=== PATIENT | female | born 1955 | race Caucasian/White ===

== ENCOUNTER 2017-01-25 00:27 | Emergency (ER) | payer OTHER, MEDICARE ==
[~2017-01-25 00:27] MED LIST: ABIL20TA5 PO; ALBUAER3 INH; BACL10TA PO; CYCL10TA PO; FLUO20CA4 PO; HYDR-2376 PO; LAMO25 PO; METHY10 PO; TRAZ300T2 PO; ZITHTAB PO; ZOFR4TAB3 SL; [UNRECOGNIZED DRUG - CODE] PO
[2017-01-25 00:31] VITALS: BP 124/66; PULSE 75; RESP 16; TEMP 97.7; O2SAT 96
[2017-01-25] MEDS ORDERED: PROM25TA10 PO (00:54)
[2017-01-25] MEDS ORDERED: OMEP20TA93 PO (00:54)
[2017-01-25] MEDS ORDERED: FLUO1TAB3 PO (00:54)
[2017-01-25] MEDS ORDERED: ASPI81CH6 CHEW (00:54)
[2017-01-25] MEDS ORDERED: TRAZ100T10 PO (00:54)
[2017-01-25] MEDS ORDERED: BENZ100 PO (00:54)
[2017-01-25] MEDS ORDERED: TRIA37.53 PO (00:54)
[2017-01-25] MEDS ORDERED: MELO15TA20 PO (00:54)
--- NOTE | 2017-01-25 01:02 | PD ---
HPI Chief Complaint: Edema Time Seen by Provider: 00:55 Travel History International Travel<30 days: No Contact w/Intl Traveler<30days: No Traveled to known affect area: No History of Present Illness HPI The patient is a 61 year old female who presents to the [facility] emergency department with a history of left knee pain that began approximately 2 months ago. Her knee has both locking and giving out. She reports that the pain is worse with walking, bending, or going up stairs. She reports that she had a partial knee replacement done in 2010. She reports that she has swelling of the left knee. She reports that the pain is gotten worse with time is and is now down into the left calf and thigh. She denies having any redness associated with this. She denies having any fevers or chills. She saw Dr. Copeland regarding this 2 weeks ago and xrays were ordered. He also ordered blood work however this has not been done yet. She had a bone scan and CT scan done in Dr. Copeland's office, however she does not know the results. She reports that Dr. Barrios is her PCP. She reports that she is on meloxicam. She also reports that she took hydrocodone for the pain without relief. She reports that she has hydrocodone for her migraine headaches. On review of systems otherwise, the patient denies having any cough, congestion, neck pain, chest pain, shortness of breath, abdominal pain, vomiting, diarrhea, urinary symptoms, or neurologic symptoms. [facility] Past Medical History Narrative Medical The patient's past medical history is significant for hypertension, depression, peptic ulcer disease, gastroparesis, anxiety, migraine headaches, history of hyponatremia. Hx Anticoagulant Therapy: Yes Arthritis: Yes Asthma: Yes ( A CHILD) Blood Disorders: No Anxiety: Yes Depression: Yes Heart Rhythm Problems: No Cancer: No Cardiac Catheterization: No Cardiovascular Problems: Yes (angioplasty x 7 years ago) High Cholesterol: Yes Chemotherapy: No Chest Pain: Yes (CHEST WALL PAIN ) Congestive Heart Failure: No Diabetes: No Diminished Hearing: No Endocrine: No Gastrointestinal Disorders: Yes (GASTROPHARESIS) GERD: No Glaucoma: No Genitourinary: No Headaches: Yes Hepatitis: No Hiatal Hernia: No Hypertension: Yes Immune Disorder: No Implanted Vascular Access Dvce: Yes Medical other: Yes (GERD,ULCER) Musculoskeletal: Yes Neurologic: Yes Psychiatric: Yes Reproductive: No Respiratory: Yes Immunizations Current: Yes Migraines: Yes Radiation Therapy: No Seizures: Yes (METABOLIC X 2 "POTASSIUM AND MAGNESIUM WAS LOW" LAST SEIZURE 1998) Sleep Apnea: Yes Thyroid Disease: No Ulcer: Yes PNEUMOCCOCAL Vaccine (Year): 2 ?: Not Menopausal: Yes : 2 Para: 0 Miscarriage: 0 Tubal Ligation: Yes Past Surgical History Narrative Surgical The patient's past surgical history is significant for bilateral tubal ligation , cholecystectomy, , right shoulder surgery, left partial knee replacement. Abdominal Surgery: Yes (CHOLECYSTECTOMY) AICD: No Appendectomy: Yes Arteriovenous Shunt: No Cardiac Surgery: No Section: Yes Cholecystectomy: Yes Coronary Artery Bypass Graft: No Ear Surgery: No Endocrine Surgery: No Eye Surgery: No Genitourinary Surgery: No Gynecologic Surgery: Yes (C SECTION,TUBAL LIG., HYSTERECTOMY) Hysterectomy: Yes Insulin Pump: No Joint Replacement: Yes (PARTIAL LEFT KNEE REPLACEMENT/ RIGHT SHOULDER REDUCTION ) Neurologic Surgery: No Oral Surgery: No Pacemaker: No Thoracic Surgery: No Tonsillectomy: Yes Other Surgery: No Family History Family Hypercholesterolemia: Yes Social History Alcohol Use: No Tobacco Use: No Substance Use: No Allergies-Medications (Allergen,Severity, Reaction): Uncoded Allergies: ANTIHISTAMINES (Adverse Reaction, Severe, HYPERACTIVE, 06/26/11) Reported Meds & Prescriptions Reported Meds & Active Scripts Active Reported Aspirin Low Dose (Aspirin) 81 Mg Chew 81 Mg CHEW DAILY Tessalon Perles (Benzonatate) 100 Mg Cap 200 Mg PO TID PRN Omeprazole 20 Mg Tab 20 Mg PO DAILY Phenergan (Promethazine HCl) 25 Mg Tablet 25 Mg PO ONCE Triamterene-Hydrochlorothiazide 37.5-25 Mg Cap 1 Cap PO DAILY Meloxicam 15 Mg Tab 15 Mg PO DAILY Trazodone (Trazodone HCl) 100 Mg Tablet 200 Mg PO HS Fluoxetine (Fluoxetine HCl) 20 Mg Tab 20 Mg PO DAILY Lamictal (Lamotrigine) 25 Mg Tab 25 Mg PO QHS Hydrocodone-Acetaminophen 7.5-300 Mg Tab 1 Tab PO Q6H PRN Baclofen 10 Mg Tab 10 Mg PO TID Abilify (Aripiprazole) 20 Mg Tab 20 Mg PO DAILY Review of Systems Except as stated in HPI: all other systems reviewed are Neg General / Constitutional: No: Fever Eyes: No: Visual changes HENT: No: Headaches, Rhinorrhea, Congestion, Neck Stiffness, Neck Pain Cardiovascular: No: Chest Pain or Discomfort Respiratory: No: Cough, Shortness of Breath Gastrointestinal: No: Nausea, Vomiting, Diarrhea, Abdominal Pain Genitourinary: No: Dysuria Musculoskeletal: Positive: Myalgias, Arthralgias, Limited ROM, Edema, Pain Skin: No Rash Neurologic: No: Weakness, Focal Abnormalities, Change in Mentation, Slurred Speech, Sensory Disturbance Psychiatric: No: Depression Endocrine: No: Polydipsia Hematologic/Lymphatic: No: Easy Bruising Physical Exam Narrative General: The patient is a well-developed well-nourished female in no acute distress. Head and Neck exam: Head is normocephalic atraumatic. Eyes: EOMI, pupils are equal round and reactive to light. Nose: Midline septum with pink mucous membranes Mouth: Dentition unremarkable. Moist mucus membranes. Posterior oropharynx is not erythematous. No tonsillar hypertrophy. Uvula midline. Airway patent. Neck: No palpable lymphadenopathy. No nuchal rigidity. No thyromegaly. Cardiovascular: Regular rate and rhythm with a 1/6 systolic murmur. The patient reports that she does have a history of heart murmur. No pulse deficit to the extremities on simultaneous auscultation and palpation of her radial artery. Lungs: Clear to auscultation bilaterally. No wheezes, rhonchi, or rales. Abdomen: Soft, without tenderness to palpation in all 4 quadrants of the abdomen. No guarding, rebound, or rigidity. Normal bowel sounds are audible. No tenderness on palpation of McBurney's point. Extremities: No clubbing, cyanosis, or edema. 2+ pulses in all 4 extremities. The patient has no significant edema noted on examination of the left knee, however she does have tenderness on palpation of the left calf and the left distal thigh. There is no erythema. There is no fluctuance or pointing. The patient on examination of the left knee reports having anterior knee pain as well as medial joint line pain. There is no ligament laxity. The patient does have full range of motion. There is no ballotable patella. Back: No costovertebral angle tenderness to palpation. Neurologic Exam: Cranial nerves 2-12 were intact on exam. Strength is 5/5 in all 4 extremities. No sensory deficits noted. Skin Exam: No rash noted. Intact skin that is warm and dry. Data Data Last Documented VS Vital Signs Date Time Temp Pulse Resp B/P (MAP) Pulse Ox O2 Delivery O2 Flow Rate FiO2 01/25/17 03:16 17 (79) 96 Room Air 01/25/17 03:15 71 01/25/17 00:31 97.7 Orders Orders Us Leg Venous Doppler (01/25/17 01:00) Complete Blood Count With Diff (01/25/17 01:12) Comprehensive Metabolic Panel (01/25/17 01:12) Prothrombin Time / Inr (Pt) (01/25/17 01:12) Act Partial Throm Time (Ptt) (01/25/17 01:12) C-Reactive Protein (Crp) (01/25/17 01:12) Westergren Sedimentation Rate (01/25/17 01:12) Phosphorus (Po4) (01/25/17 01:12) Iv Access Insert/Monitor (01/25/17 01:12) Ecg Monitoring (01/25/17 01:12) Oximetry (01/25/17 01:12) Ketorolac Inj (Toradol Inj) (01/25/17 01:15) Hydromorphone Pf Inj (Dilaudid Pf Inj) (01/25/17 03:15) Ondansetron Inj (Zofran Inj) (01/25/17 03:15) Splint Or Brace Apply/Monitor (01/25/17 03:16) Ed Discharge Order (01/25/17 03:17) Labs Laboratory Tests Test 01/25/17 01:55 White Blood Count 7.3 TH/MM3 Red Blood Count 4.23 MIL/MM3 Hemoglobin 13.1 GM/DL Hematocrit 39.1 % Mean Corpuscular Volume 92.4 FL Mean Corpuscular Hemoglobin 31.0 PG Mean Corpuscular Hemoglobin Concent 33.5 % Red Cell Distribution Width 12.4 % Platelet Count 212 TH/MM3 Mean Platelet Volume 6.8 FL Neutrophils (%) (Auto) 39.8 % Lymphocytes (%) (Auto) 44.7 % Monocytes (%) (Auto) 10.9 % Eosinophils (%) (Auto) 4.0 % Basophils (%) (Auto) 0.6 % Neutrophils # (Auto) 2.9 TH/MM3 Lymphocytes # (Auto) 3.3 TH/MM3 Monocytes # (Auto) 0.8 TH/MM3 Eosinophils # (Auto) 0.3 TH/MM3 Basophils # (Auto) 0.0 TH/MM3 CBC Comment DIFF FINAL Differential Comment Erythrocyte Sedimentation Rate 6 mm/hr Prothrombin Time 10.5 SEC Prothromb Time International Ratio 1.0 RATIO Activated Partial Thromboplast Time 23.9 SEC Blood Urea Nitrogen 12 MG/DL Creatinine 0.93 MG/DL Random Glucose 119 MG/DL Total Protein 7.4 GM/DL Albumin 3.9 GM/DL Calcium Level 9.0 MG/DL Phosphorus Level 3.9 MG/DL Alkaline Phosphatase 80 U/L Aspartate Amino Transf (AST/SGOT) 19 U/L Alanine Aminotransferase (ALT/SGPT) 16 U/L Total Bilirubin 0.7 MG/DL Sodium Level 125 MEQ/L Potassium Level 3.7 MEQ/L Chloride Level 91 MEQ/L Carbon Dioxide Level 25.6 MEQ/L Anion Gap 8 MEQ/L Estimat Glomerular Filtration Rate 61 ML/MIN C-Reactive Protein LESS THAN 0.29 MG/DL MDM Medical Decision Making Medical Screen Exam Complete: Yes Emergency Medical Condition: Yes Medical Record Reviewed: Yes Interpretation(s) Last Impressions Lower Extremity Ultrasound 01/25/17 0100 Signed Impressions: Service Date/Time: Wednesday, January 25, 2017 01:32 - CONCLUSION: No venous thrombosis of the left lower extremity. Moderate-sized popliteal cyst. Cosme Manley MD Differential Diagnosis Septic joint, versus recurrence of arthritis, versus DVT, versus Gonzalez cyst Narrative Course During the course of the patients emergency department visit, the patients history, examination, and differential diagnosis were reviewed with the patient. The patient was placed on a cardiac tech with oximetry and frequent blood pressure monitoring. The patient had IV access obtained and blood work sent for analysis. An ultrasound of the left lower extremity was ordered. The patient was initially provided Toradol 15 mg IV for pain. With continued pain the patient was given hydromorphone 0.5 mg IV. The patients laboratory studies were reviewed and remarkable for a white count of 7.3, hemoglobin 13.1, platelets 212 with 44.7 lymphocytes, monocytes 10.9, sedimentation rate is 6, CRP is less than 0.29, CMP is remarkable for sodium of 125, chloride 91, glucose 119. A review of the electronic medical record reveals that the patient has had hyponatremia in the past. The patient and the patient's reports that they were not aware of this. The patient's sodium has been as low as 117. We discussed that this could be medication related. She is on 2 medications that could be contributed to the hyponatremia , fluoxetine as well as hydrochlorothiazide. I recommended that she discontinue the hydrochlorothiazide and discuss the hyponatremia with her primary care physician in the morning. Radiology studies were reviewed and remarkable for an ultrasound of the left leg that shows no venous thrombosis, moderate-sized popliteal cyst. Due to the fact that the patient reports that her leg at times is giving out, the patient was given left knee immobilizer. The patient was instructed that she can take this off when she elevates her leg. The patient was instructed to continue on her current pain management regimen and discuss her ER visit with her orthopedic physician in the morning. The patient is resting comfortably and feels better, is alert and in no distress. The patients results and examination findings were discussed with the patient. The repeat examination is unremarkable and benign. The history, exam, diagnostic testing, and current condition do not suggest any significant pathology to warrant further testing, continued ED treatment, admission, or surgical evaluation at this point. The vital signs have been stable. The patient does not have uncontrollable pain, intractable vomiting, or other significant symptoms. The patient's condition is stable and appropriate for discharge. The patient will pursue further outpatient evaluation with a primary care physician or other designated or consulting physician as indicated in the discharge instructions. The patient expressed understanding and was agreeable with this plan. Diagnosis Primary Impression: Left knee pain Qualified Codes: M25.562 - Pain in left knee; G89.29 - Other chronic pain Additional Impressions: Popliteal cyst Qualified Codes: M71.22 - Synovial cyst of popliteal space [Gonzalez], left knee Hyponatremia Referrals: Masoud Copeland MD 2 days Patient Instructions: General Instructions, Hyponatremia (ED), Knee Pain (ED) Med/Other Pt SpecificInfo: Med Stopped (I recommended stopping hydrochlorothiazide) Disposition: 01 DISCHARGE HOME Condition: Stable Charlotte Sierra MD Jan 25, 2017 01:02
[2017-01-25] MEDS ORDERED: KETOROLAC TROMETHAMINE 30 MG/ML (IVP) VIAL IV PUSH ONE (01:15)
--- NOTE | 2017-01-25 01:57 | RADRPT ---
EXAM DATE/TIME: 01/25/2017 01:32 [facility] COMPARISON: No previous studies available for comparison. INDICATIONS : Left leg pain. MEDICAL HISTORY : Hypercholesterolemia. Hypertension. Left leg pain. SURGICAL HISTORY : Appendectomy. Hysterectomy. Tubal ligation. Cholecystectomy. Left knee replacement. ENCOUNTER: Initial ACUITY: 1 month PAIN SCORE: 5/10 LOCATION: Left leg. TECHNIQUE: Venous ultrasound of the leg was performed from the inguinal ligament to the proximal calf. Real-janeth e, color Doppler and spectral tracing, compression and augmentation techniques were used. FINDINGS: There is normal compressibility of the deep venous system from the inguinal region to the proximal ca lf. No echogenic clot is seen in the lumen of the common femoral, femoral, popliteal, and posterior tibial veins. There is a normal response of the venous system to proximal and distal augmentation an d respiration. 17 x 24 x 30 mm fluid collection seen posteromedial to the left knee. CONCLUSION: No venous thrombosis of the left lower extremity. Moderate-sized popliteal cyst. Cosme Manley MD on January 25, 2017 at 1:55 Board Certified Radiologist. This report was verified electronically.
[2017-01-25 02:06] LABS: AUTOMATED NEUTROPHIL # 2.9 TH/MM3 (1.8-7.7); BASOPHIL % 0.6 % (0.0-2.0); EOSINOPHIL # 0.3 TH/MM3 (0-0.4); HEMATOCRIT 39.1 % (35.0-46.0); HEMO FLAGS DIFF FINAL; LYMPH % 44.7 % (9.0-44.0); LYMPHOCYTE # 3.3 TH/MM3 (1.0-4.8); MEAN CELL VOLUME 92.4 FL (80.0-100.0); MEAN CORPUSCULAR HGB CONC 33.5 % (32.0-36.0); MONO % 10.9 % (0.0-8.0); NEUT % 39.8 % (16.0-70.0); PLATELET COUNT 212 TH/MM3 (150-450); RED BLOOD COUNT 4.23 MIL/MM3 (4.00-5.30); RED CELL DISTRIBUTION WIDTH 12.4 % (11.6-17.2); WHITE BLOOD COUNT 7.3 TH/MM3 (4.0-11.0)
[2017-01-25 02:16] LABS: APTT (PATIENT) 23.9 SEC (24.3-30.1); PROTHROMBIN TIME - PATIENT 10.5 SEC (9.8-11.6)
[2017-01-25 02:19] LABS: ALT (GPT) 16 U/L (10-53); ANION GAP 8 MEQ/L (5-15); AST (GOT) 19 U/L (15-37); BICARBONATE 25.6 MEQ/L (21.0-32.0); BLOOD UREA NITROGEN 12 MG/DL (7-18); CHLORIDE 91 MEQ/L (98-107); GLOMERULAR FILTRATION RATE 61 ML/MIN (>89); POTASSIUM 3.7 MEQ/L (3.5-5.1); SODIUM (NA) 125 MEQ/L (136-145)
[2017-01-25 02:22] LABS: ALKALINE PHOSPHATASE 80 U/L (45-117); TOTAL BILIRUBIN ADULT 0.7 MG/DL (0.2-1.0)
[2017-01-25 03:15] VITALS: BP 112/63; PULSE 71; RESP 17; O2SAT 96
[2017-01-25] MEDS ORDERED: ONDANSETRON HCL 4 MG/2 ML VIAL IV PUSH ONE (03:15)
[2017-01-25] MEDS ORDERED: HYDROmorphone HCL PF 0.5 MG/0.5 ML SYRINGE IV PUSH ONE (03:15)
[2017-01-25 03:16] VITALS: RESP 17; O2SAT 96
[2017-01-25 04:18] VITALS: BP 108/56; PULSE 69; RESP 16; O2SAT 96
[2017-01-25 04:19] VITALS: RESP 16
== END 2017-01-25 04:20 | disposition home or self-care (01) ==
LOC: NEPC 00:27
DX: M25.562 Pain in left knee (principal); M71.22 Synovial cyst of popliteal space [Baker], left knee; E87.1 Hypo-osmolality and hyponatremia; I10 Essential (primary) hypertension; M19.90 Unspecified osteoarthritis, unspecified site; J45.909 Unspecified asthma, uncomplicated; E78.00 Pure hypercholesterolemia, unspecified; K31.84 Gastroparesis; K21.9 Gastro-esophageal reflux disease without esophagitis
CPT/HCPCS: 80053; 84100; 85025; 85610; 85652; 85730; 86140; 93971; 96374; 96375; 99285; J1170; J1885; J2405; L1830

== ENCOUNTER → 2017-03-11 | Outpatient (CLI) | payer OTHER, MEDICARE ==
[~2017-03-11] MED LIST changes: +ABIL30TA5 PO; -ALBUAER3 INH; +ASPI81CH6 CHEW; +BENZ100 PO; -CYCL10TA PO; +DIAZ5TAB PO; +FLUO1TAB3 PO; -FLUO20CA4 PO; +HYDR-3583 PO; +LAMO150 PO; +LISD50 PO; +MELO15TA20 PO; -METHY10 PO; +OMEP20TA93 PO; +PROM25TA10 PO; +TRAZ100T10 PO; -TRAZ300T2 PO; +TRIA37.53 PO; -ZITHTAB PO; -ZOFR4TAB3 SL; -[UNRECOGNIZED DRUG - CODE] PO
[2017-03-11 13:33] LABS: AUTOMATED NEUTROPHIL # 1.8 TH/MM3 (1.8-7.7); EOSINOPHIL # 0.3 TH/MM3 (0-0.4); EOSINOPHIL % 5.9 % (0.0-4.0); HEMATOCRIT 39.5 % (35.0-46.0); HEMOGLOBIN 13.6 GM/DL (11.6-15.3); LYMPH % 41.2 % (9.0-44.0); LYMPHOCYTE # 1.8 TH/MM3 (1.0-4.8); MEAN CELL VOLUME 93.9 FL (80.0-100.0); MEAN CORPUSCULAR HEMOGLOBIN 32.3 PG (27.0-34.0); MEAN CORPUSCULAR HGB CONC 34.4 % (32.0-36.0); MEAN PLATELET VOLUME 7.3 FL (7.0-11.0); MONO % 10.2 % (0.0-8.0); MONOCYTE # 0.4 TH/MM3 (0-0.9); NEUT % 41.7 % (16.0-70.0); PLATELET COUNT 199 TH/MM3 (150-450); RED BLOOD COUNT 4.21 MIL/MM3 (4.00-5.30); RED CELL DISTRIBUTION WIDTH 12.7 % (11.6-17.2); WHITE BLOOD COUNT 4.4 TH/MM3 (4.0-11.0)
[2017-03-11 13:53] LABS: WESTERGREN SEDIMENTATION RATE 7 mm/hr (0-30)
[2017-03-11 14:12] LABS: BICARBONATE 24.8 MEQ/L (21.0-32.0); BLOOD UREA NITROGEN 17 MG/DL (7-18); C-REACTIVE PROTEIN LESS THAN 0.29 MG/DL (0.00-0.30); CALCIUM 9.3 MG/DL (8.5-10.1); CHLORIDE 100 MEQ/L (98-107); CREATININE 0.95 MG/DL (0.50-1.00); GLOMERULAR FILTRATION RATE 60 ML/MIN (>89); GLUCOSE,FASTING 92 MG/DL (74-99); SODIUM (NA) 132 MEQ/L (136-145)
[2017-03-11 14:17] LABS: BILIRUBIN, URINE NEG (NEG); BLOOD, URINE TRACE (NEG); GLUCOSE,URINE NEG (NEG); KETONE, URINE NEG (NEG); NITRITE,URINE NEG (NEG); SQUAMOUS EPITHELIAL CELL URINE <1 /hpf (0-5); TRANSITIONAL EPI CELLS, URINE <1 /hpf; URINE COLOR LIGHT-YELLOW (YELLW/STRAW); URINE LEUKOCYTE ESTERASE NEG (NEG)
--- NOTE | 2017-03-12 13:28 | EKG ---
Date Performed: 03/11/2017 Time Performed: 12:14:08 PTAGE: 61 years EKG: Sinus rhythm with borderline 1st degree A-V block Incomplete RBBB Borderline ECG PREVIOUS TRACING : 02/03/2013 03.07 Since previous tracing, [place] interval slightly longer, otherw ise no significant change. DOCTOR: Burak Meza Interpretating Date/Time 03/12/2017 13:26:56
== END ==
LOC: CPRE 11:39
PROVIDERS: ATTEND Orthopaedic Surgery Orthopaedic Surgery of the Spine
DX: Z01.812 Encounter for preprocedural laboratory examination (principal); Z01.810 Encounter for preprocedural cardiovascular examination; M25.562 Pain in left knee; T84.7XXA Infection and inflammatory reaction due to other internal orthopedic prosthetic devices, implants and grafts, initial encounter; Z96.652 Presence of left artificial knee joint; Z79.01 Long term (current) use of anticoagulants
CPT/HCPCS: 80048; 81001; 85025; 85610; 85652; 85730; 86140; 93005

== ENCOUNTER 2017-03-29 05:18 | Inpatient (IN) | payer OTHER, MEDICARE ==
[~2017-03-29] VITALS: Ht 152.4 cm; Wt 84.7 kg
[~2017-03-29 05:18] MED LIST changes: -ABIL20TA5 PO; -FLUO1TAB3 PO; -HYDR-2376 PO; -LAMO25 PO; -TRIA37.53 PO
[2017-03-29] MEDS ORDERED: METOPROLOL TARTRATE 25 MG TAB PO PRN (06:15)
[2017-03-29] MEDS ORDERED: SODIUM CHLORID 0.9% 500 ML IV PRN (06:15)
[2017-03-29] MEDS ORDERED: CHLORHEXIDINE GLUCONATE 2 % 1 PACK (2 CLOTHS) TOPICAL PRN (06:15)
[2017-03-29] MEDS ORDERED: ceFAZolin 2 GM PREMIX 50 ML IV SCH (06:15)
[2017-03-29] MEDS ORDERED: CHLORHEXIDINE GLUCONATE 4% SOLN 120 ML BTL TOPICAL SCH (06:15)
[2017-03-29] MEDS ORDERED: VANCOMYCIN 1000 MG/NS 250 ML (for <70 kg) IV SCH ×2 (06:15)
[2017-03-29] MEDS ORDERED: LACTATED RINGER'S 1000 ML IV PRN (06:15)
[2017-03-29] MEDS ORDERED: POVIDONE IODINE 5% (ANTISEPSIS KIT) 4 APPLICATIONS EACH NARE PRN (06:15)
[2017-03-29] MEDS ORDERED: TRANEXAMIC ACID INJ 850 MG in SODIUM CHLORIDE 0.9% INJ 100 ML IV SCH (06:15)
[2017-03-29] MEDS ORDERED: EXPAREL PERI-ARTICULAR INJECTION (TOTAL VOL. 60 ML) P-ARTICULR SCH ×2 (06:15)
[2017-03-29] MEDS ORDERED: BUPIVACAINE LIPOSOME PF 1.3% 20 ML VIAL ONE (07:36)
[2017-03-29] MEDS ORDERED: GENTAMICIN SULFATE 80 MG/2 ML VIAL ONE (07:45)
[2017-03-29] MEDS ORDERED: BUPIVACAINE/EPINEPHRINE 0.25% PF 30 ML VIAL ONE (08:21)
[2017-03-29] MEDS ORDERED: MORPHINE SULFATE 8 MG/ML INJ IM PRN (10:15)
[2017-03-29] MEDS ORDERED: NALOXONE HCL 0.4 MG/ML AMP IV PUSH PRN (10:15)
[2017-03-29] MEDS ORDERED: oxyCODONE/ACETAMINOPHEN 5 MG/325 MG TAB PO PRN (10:15)
[2017-03-29] MEDS ORDERED: MISCELLANEOUS PHARMACY INFORMATION XX ONE (10:15)
[2017-03-29] MEDS ORDERED: Post-op Orders (for Pharmacy) XX ONE (10:15)
[2017-03-29] MEDS ORDERED: MISCELLANEOUS NURSING INFORMATION XX PRN (10:15)
--- NOTE | 2017-03-29 10:20 | PD.OP ---
cc: Masoud Copeland MD Operative Report Date of Surgery: Mar 29, 2017 Preoperative Diagnosis: Malfunctioning left medial compartment unicompartmental replacement arthroplasty Postoperative Diagnosis: Same Procedure: Revision left total knee replacement arthroplasty Anesthesia: Gen. with regional block for pain control Surgeon: Masoud Copeland Bottle Cleaner(s): CELSA Gregorio Operation and Findings: EBL: 50 cc INDICATION: This patient presents with with a previous partial knee replacement performed by another surgeon in [facility] in 2010. The patient's developed progressive pain with loss of motion. Investigative studies shows evidence of malpositioning of the components with evidence of subsidence. The patient has no evidence of an infection. This patient is having loss of function. The patient now presents for surgical treatment. NOTE: Mayra Gregorio was present for the entire surgical procedure as my surgical services assistant. In my medical opinion that individual's skill and care was necessary for proper management of this patient. TOURNIQUET TIME: 70 minutes COMPANY: [employer] FEMUR: Size left, 2.5, posterior stabilized, cemented TIBIA: Size 2.5, fixed bearing, cemented PATELLA: 32 mm POLYETHYLENE INSERT: 2.5, 12.5 mm, posterior stabilized PROCEDURE: This patient was brought the operating room and anesthetized in the supine position. The patient was positioned supine on the table. The tourniquet was placed about the thigh, and the leg was scrubbed with alcohol followed by Hibiclens followed by ChloraPrep and draped sterilely. A timeout was done, and antibiotics were given. After exsanguination the tourniquet was inflated to 250 mmHg. An anterior incision was made and a median parapatellar arthrotomy was performed. The patella was released laterally and subluxed allowing freehand cut of the patella which was then sized. A metal cap was placed over the exposed patellar surface for protection. The patient had evidence of mild loosening of the medial collateral ligament. A airplane patrol pilot hole was placed in the distal femur allowing a 5 valgus cut removing 9 mm from the distal femur. The initial anterior cut was partially made. The medial resurfacing arthroplasty was loosened with osteotomes. This was very carefully removed from the surrounding cement and bone. Very carefully in a retrograde fashion the femoral component was removed. The distal femoral cut was completed. Anterior posterior and chamfer cuts were made. By the nature of the cut, the posterior medial side did not need an augment. No distal augment was necessary. The posterior stabilize osteotomy was made. The attention was directed to the tibia. Retractors were positioned. The external alignment guide was used allowing the lateral tibia to be used as referencing guide and cut utilizing an oscillating saw taking care to avoid any injury to the surrounding soft tissues. There was a defect in the medial side. The medial component was loose and was removed without difficulty. This was sized properly. Trial reduction showed that the insert fit nicely. The patient had range of motion extension 0 flexion 120. A medial release is not necessary. The bony surfaces prepared. On the back table 2 packets of methylmethacrylate were mixed. Bone grafting of the medial tibia was not necessary. The components were cemented. Excess cement was removed. The tourniquet let down and hemostasis was controlled. The final plastic insert was inserted. Initially we trialed a 10 mm component which felt satisfactory. After the final component was inserted, we felt it was slightly loose in full extension and this was then changed to a 12.5 mm final insert. Range of motion was the same as previously noted. A drain was brought through a separate stab incision. A field block was used with local anesthesia, using 20 mL of extra roll, 40 mL of saline and 60 mL of quarter percent Marcaine with epinephrine. The arthrotomy was repaired with interrupted #1 Vicryl suture, subcutaneous tissue 2-0 Vicryl suture and skin with metallic kenneth A sterile dressing was applied. Sponge counts, needle counts and instrument counts were all correct. The patient tolerated procedure well and was taken to recovery in satisfactory condition. FINDINGS: There was evidence of mild laxity of the medial collateral ligament. The final solution was excellent. The patient had range of motion from full extension to 125 of flexion. Masoud Copeland MD Mar 29, 2017 10:20
[2017-03-29] MEDS ORDERED: ECASA81 PO (10:25)
[2017-03-29] MEDS ORDERED: OXYC1TAB63 PO (10:25)
[2017-03-29] MEDS: LACTATED RINGER'S 1000 ML INJ 1,000 ML IV SCH ×2 (10:30→20:36)
[2017-03-29] MEDS ORDERED: PILL SPLITTER OTHER PRN (10:30)
[2017-03-29] MEDS ORDERED: *MEPERIDINE 25 MG INJ VIAL PERIprocedural Use ONLY ONE (10:33)
[2017-03-29] MEDS ORDERED: *morphine SULFATE 10 MG/ML PERIprocedure ONLY ONE ×2 (10:44→11:09)
[2017-03-29] MEDS ORDERED: *ONDANSETRON 4 MG VIAL PERIprocedural Use ONLY ONE (10:47)
[2017-03-29] MEDS ORDERED: DIAZEPAM 5 MG TAB PO PRN (11:00)
[2017-03-29] MEDS ORDERED: ASPIRIN EC 81 MG TABEC PO ONE (11:00)
--- NOTE | 2017-03-29 11:24 | RADRPT ---
EXAM DATE/TIME: 03/29/2017 10:47 [facility] COMPARISON: No previous studies available for comparison. INDICATIONS : Post op left knee surgery MEDICAL HISTORY : None. SURGICAL HISTORY : None. ENCOUNTER: Initial ACUITY: 1 day PAIN SCORE: 10/10 LOCATION: Left knee FINDINGS: Two view examination of the left knee demonstrates total knee arthroplasty. All 3 components are appr opriately positioned without fracture. CONCLUSION: Appropriate postoperative appearance of the left knee status post total arthroplasty. No fractu re. Luca Mcneal MD on March 29, 2017 at 11:20 Board Certified Radiologist. This report was verified electronically.
[2017-03-29] MEDS ORDERED: GLYCOPYRROLATE 1 MG/5 ML SYRINGE IV PUSH ONE (12:00)
[2017-03-29] MEDS ORDERED: PROPOFOL 200 MG/20 ML AMP IV ONE (12:00)
[2017-03-29] MEDS ORDERED: PHENYLEPH/NS 1000 MCG/10 ML SYR IV ONE (12:00)
[2017-03-29] MEDS ORDERED: LIDOCAINE HCL 1% PF 5 ML SYRINGE OTHER ONE (12:00)
[2017-03-29] MEDS ORDERED: NEOSTIGMINE 5 MG/5 ML SYRINGE IV PUSH ONE (12:00)
[2017-03-29] MEDS ORDERED: ROCURONIUM INJ 50 MG/5 ML SYRINGE IV PUSH ONE (12:00)
[2017-03-29] MEDS ORDERED: ePHEDrine/NS 25 MG/5 ML SYRINGE IV ONE (12:00)
[2017-03-29] MEDS ORDERED: LACTATED RINGER'S 1000 ML INJ 1,000 ML IV ONE (12:00)
[2017-03-29] MEDS ORDERED: ONDANSETRON HCL 4 MG/2 ML VIAL IV ONE (12:00)
[2017-03-29] MEDS ORDERED: HYDROmorphone HCL PF 2 MG/ML VIAL ONE (12:20)
[2017-03-29 15:00] VITALS: BP 90/50; PULSE 94; RESP 18; TEMP 98; O2SAT 97
[2017-03-29] MEDS: oxyCODONE/ACETAMINOPHEN 5 MG/325 MG TAB PO PRN ×2 (17:56→22:38)
[2017-03-29] MEDS: MAGNESIUM HYDROXIDE SUSP 30 ML CUP PO SCH (20:31)
[2017-03-29] MEDS: ASPIRIN EC 81 MG TABEC PO SCH (20:32)
[2017-03-29] MEDS: lamoTRIgine 100 MG TAB PO SCH (20:32)
[2017-03-29 21:00] VITALS: BP 150/87; PULSE 98; RESP 16; TEMP 99.4; O2SAT 96
[2017-03-29] MEDS ORDERED: SENNOSIDES 8.6 MG TAB PO SCH (21:00)
[2017-03-29] MEDS ORDERED: traZODone HCL 100 MG TAB PO SCH (21:00)
[2017-03-29] MEDS ORDERED: TEMAZEPAM 15 MG CAP PO PRN (21:00)
[2017-03-30 00:45] VITALS: BP 165/76; PULSE 105; RESP 16; TEMP 99; O2SAT 95
[2017-03-30 03:55] VITALS: BP 143/73; PULSE 105; RESP 15; TEMP 99.6; O2SAT 93
[2017-03-30 08:00] VITALS: BP 168/78; PULSE 93; RESP 16; TEMP 97.3; O2SAT 98
[2017-03-30] MEDS: oxyCODONE/ACETAMINOPHEN 5 MG/325 MG TAB PO PRN ×3 (08:33→17:02)
[2017-03-30] MEDS: MAGNESIUM HYDROXIDE SUSP 30 ML CUP PO SCH (08:34)
[2017-03-30] MEDS: lamoTRIgine 100 MG TAB PO SCH (08:34)
[2017-03-30] MEDS ORDERED: MELOXICAM 15 MG TAB PO SCH (09:00)
[2017-03-30] MEDS ORDERED: ARIPiprazole 30 MG TAB PO SCH (09:00)
[2017-03-30] MEDS ORDERED: LISDEXAMFETAMINE DIMESYLATE 50 MG CAP PO SCH (09:00)
[2017-03-30] MEDS ORDERED: PANTOPRAZOLE SOD 20 MG DELAYED RELEASE TAB PO SCH (09:00)
[2017-03-30] MEDS ORDERED: CPMMACHINE (10:25)
[2017-03-30] MEDS ORDERED: WALKER WHEELS/F1 MIS (10:25)
[2017-03-30] MEDS ORDERED: COMMODE 3-IN-11 MIS (10:26)
--- NOTE | 2017-03-30 10:28 | HHI.FF ---
Face to Face Verification Diagnosis: (1) Mechanical complication of knee prosthesis Physical Therapy Gait training, Safety evaluation, Transfer training, bed to chair Knee: Total knee, Protocol: Left, Full weight bearing Canvas Knee Splint: When in bed & 2 pillows btw thighs Left LE Weight Bearing: WB as tolerated Additional Instructions PT 4 days/wk for 2 weeks. WBAT LLE. TKA protocol. CPM 2x daily as tolerated, 0-60 with goal of 100 flexion Nursing RN Days per Week: 2 x Week(s): 1 Dressing Changes: Do not change dressing Additional Instructions Vitals assessment. Dressing assessment - do not change unless saturated. I have seen patient Marah Duran on 03/30/17. My clinical findings support the need for the requested home health care services because: Limited ability to care for self High risk of falls I certify that my clinical findings support that this patient is homebound because: Post-op weakness Unsteady gait/balance Mayela Frank Mar 30, 2017 10:28
--- NOTE | 2017-03-30 10:28 | HHI.DCPOC ---
Discharge Care Plan Diagnosis: (1) Mechanical complication of knee prosthesis Your Health Problems Are: Difficulty with ADL Incision/Drains Inflammation Goals to Promote Your Health * To prevent worsening of your condition and complications * To maintain your health at the optimal level Directions to Meet Your Goals Take your medications as prescribed Follow your dietary instruction Follow activity as directed Keep your appointments as scheduled Take your immunizations and boosters as scheduled If your symptoms worsen call your PCP, if no PCP go to Urgent Care Center or Emergency Room Smoking is Dangerous to Your Health. Avoid second hand smoke Call the 24-hour hour crisis hotline for domestic abuse at Mayela Frank Mar 30, 2017 10:28
--- NOTE | 2017-03-30 10:29 | HHI.DS ---
Discharge Summary Admission Date Mar 29, 2017 at 05:18 Discharge Date: Mar 31, 2017 Admitting Diagnosis see below Diagnosis: (1) Mechanical complication of knee prosthesis Diagnosis: Principal ICD Codes: T84.098A - Other mechanical complication of other internal joint prosthesis, initial encounter; Z96.659 - Presence of unspecified artificial knee joint Procedures Revisional left total knee arthroplasty Brief History This is a 61 year old female patient Pt Condition on Discharge: Stable Discharge Disposition: Disch w/ Home Health Serv Discharge Instructions Diet Instructions: As Tolerated, No Restrictions, High Fiber Diet Activities You Can Perform: Weight Bearing as Jonnathan Activities to Avoid: Strenuous Activity New Medications: Commode 3-in-1 (Commode 3-in-1) 1 Mis Mis EA .ROUTE DIRECTED, #1 0 Refills CPM-Continuous Passive Motion Machine (CPM-Continuous Passive Motion Machine) 1 Ea Device EA .ROUTE DIRECTED, #1 0 Refills Walker with Front Wheels (Walker with Front Wheels) 1 Mis Mis EA .ROUTE DIRECTED, #[address] (Aspirin DR) 81 Mg Tabdr 81 MG PO BID for Prevent Blood Clot, #60 TAB Oxycodone HCl/Acetaminophen (Oxycodone-Acetaminophen 5-325) 5 Mg-325 Mg Tablet 1 TAB PO Q4H PRN for pain, #50 TAB Continued Medications: Aripiprazole (Abilify) 30 Mg Tab 30 MG PO DAILY, #30 TAB 0 Refills Aspirin (Aspirin Low Dose) 81 Mg Chew 81 MG CHEW DAILY, TAB 0 Refills Benzonatate (Tessalon Perles) 100 Mg Cap 200 MG PO TID PRN for COUGH, CAP 0 Refills Diazepam (Diazepam) 5 Mg Tab 5 MG PO BID PRN for ANXIETY, TAB 0 Refills Hydrocodone-Acetaminophen (Hydrocodone-Acetaminophen) 10-325 mg Tab 1 TAB PO Q8HR PRN for PAIN, TAB 0 Refills Lamotrigine (Lamictal) 150 Mg Tab 150 MG PO BID for mood stability, #60 TAB 0 Refills Lisdexamfetamine (Vyvanse) 50 Mg Cap 50 MG PO DAILY for adhd/narcolepsy, #30 CAP 0 Refills Meloxicam (Meloxicam) 15 Mg Tab 15 MG PO DAILY for Arthritis Pain, #30 TAB 0 Refills Omeprazole (Omeprazole) 20 Mg Tab 20 MG PO DAILY, #30 TAB 0 Refills Promethazine (Phenergan) 25 Mg Tablet 25 MG PO ONCE for Nausea/Vomiting, #1 TAB 0 Refills Trazodone (Trazodone) 100 Mg Tablet 200 MG PO HS for Control Depression, #30 TAB 0 Refills Mayela Frank Mar 30, 2017 10:29
[2017-03-30] MEDS: ASPIRIN EC 81 MG TABEC PO SCH (10:53)
[2017-03-30] MEDS: LACTATED RINGER'S 1000 ML INJ 1,000 ML IV SCH (11:30)
[2017-03-30 12:00] VITALS: BP 171/82; PULSE 94; RESP 16; TEMP 98.6; O2SAT 98
--- NOTE | 2017-03-30 13:11 | PD.ORT.PN ---
Subjective Subjective Remarks Doing well with moderate knee pain. Urinating regularly. No complaints of radiating leg pain. Would prefer to home today if possible. No new CP or SOB. Objective Vitals Vital Signs Date Time Temp Pulse Resp B/P (MAP) Pulse Ox O2 Delivery O2 Flow Rate FiO2 03/30/17 08:00 97.3 93 16 168/78 (108) 98 03/30/17 03:55 99.6 105 15 143/73 (96) 93 03/30/17 00:45 99.0 105 16 165/76 (105) 95 03/29/17 21:00 99.4 98 16 150/87 (108) 96 03/29/17 15:00 98.0 94 18 90/50 (63) 97 03/29/17 14:00 99 12 109/74 (86) 98 Nasal Cannula 2 I/O 03/29/17 03/29/17 03/29/17 03/30/17 03/30/17 03/30/17 07:00 15:00 23:00 07:00 15:00 23:00 Intake Total 1101 ml 578 ml 338 ml Output Total 50 ml Balance 1051 ml 578 ml 338 ml Intake Oral 1 ml 480 ml 240 ml IV Total 98 ml 98 ml Other 1100 ml Output Estimated Blood Loss 50 ml # Voids 3 1 # Bowel Movements 0 0 Procedures Revisional left total knee arthroplasty Objective Remarks Walking in room w walker With daughter NAD VSS LLE Dressing c/d/i, drain in place, mild swelling and warmth, no erythema +motor at , +sens, +nvi Neg homans Assessment & Plan Problem List: (1) Mechanical complication of knee prosthesis ICD Codes: T84.098A - Other mechanical complication of other internal joint prosthesis, initial encounter; Z96.659 - Presence of unspecified artificial knee joint Qualifiers: Qualified Codes: T84.098A - Other mechanical complication of other internal joint prosthesis, initial encounter; Z96.659 - Presence of unspecified artificial knee joint Assessment and Plan pod#1 s/p Rev L TKA Ortho stable. PT - WBAT LLE. TKA protocol. CPM bid. D/C left knee drain. Hold dressing changes. Ok to change drain site dressing only. ASA 81mg bid. Percocet 5mg as needed for pain. Ok to d/c home w c today if stable. F/U in 2 weeks as scheduled. Mayela Frank Mar 30, 2017 13:11
== END 2017-03-30 17:22 | disposition home health service (06) | DRG 468 ==
LOC: HSDI 05:18 → UNDODISIN 14:48 → N06B 14:50
PROVIDERS: ADMIT Orthopaedic Surgery Orthopaedic Surgery of the Spine; ATTEND Orthopaedic Surgery Orthopaedic Surgery of the Spine
PROC: 0SRD0J9 Replacement of Left Knee Joint with Synthetic Substitute, Cemented, Open Approach (ICD-10-PCS; 2017-03-29)
PROC: 3E0T3BZ Introduction of Anesthetic Agent into Peripheral Nerves and Plexi, Percutaneous Approach (ICD-10-PCS; 2017-03-29)
PROC: 0SPD0JZ Removal of Synthetic Substitute from Left Knee Joint, Open Approach (ICD-10-PCS; principal; 2017-03-29 07:28)
DX: T84.023A Instability of internal left knee prosthesis, initial encounter (principal); I25.10 Atherosclerotic heart disease of native coronary artery without angina pectoris; K21.9 Gastro-esophageal reflux disease without esophagitis; E66.9 Obesity, unspecified; F32.9 Major depressive disorder, single episode, unspecified; F41.9 Anxiety disorder, unspecified; Y83.8 Other surgical procedures as the cause of abnormal reaction of the patient, or of later complication, without mention of misadventure at the time of the procedure; Z68.36 Body mass index [BMI] 36.0-36.9, adult; Z85.828 Personal history of other malignant neoplasm of skin; Z87.891 Personal history of nicotine dependence; Z98.61 Coronary angioplasty status
CPT/HCPCS: 73560; 86850; 86900; 86901; 86920; 94150; C1776; C9290; J0690; J1170; J1580; J2175; J2270; J2370; J2405; J2710; J3010; J3370; J7050; J7120; L1830